=== PATIENT | female | born 1990 | race Caucasian/White ===

== ENCOUNTER 2022-11-27 20:02 | Emergency (ER) | payer OTHER, SELFPAY ==
--- NOTE | ~2022-11-27 | CT_ITS ---
EXAMINATION: CT LOWER LEG WITH IV CONTRAST, RIGHT CT LOWER LEG WITH IV CONTRAST, LEFT CLINICAL INFORMATION: Traumatic injury. Question quadriceps tendon injury. Inability to ambulate. Hyperextension injury bilaterally. COMPARISON: Right and left knee radiographs done earlier the same day. TECHNIQUE: Contiguous axial CT images of the right and left lower leg were obtained following the IV administration of 85 mL Omnipaque 350 contrast. Sagittal and coronal reformats were provided and reviewed. This CT examination was performed using dose optimization techniques as appropriate, variously including the following: *Automated exposure control *Adjustment of mA and/or kV according to patient size (this includes techniques or standardized protocols for targeted exams where dose is matched to indication/reason for exam; i.e. extremities or head) *Use of iterative reconstruction technique. DOSE: 293 mGy-cm. FINDINGS: RIGHT LOWER LEG: No acute fracture or dislocation. No concerning lytic or blastic osseous lesion. No evidence of avascular necrosis. No joint space narrowing or marginal osteophytes. The visualized muscles and tendons are grossly intact. No measurable tear or tendon retraction. Evaluation limited on CT examination. Trace right knee joint effusion. Intra-articular ligaments grossly intact, however, evaluation significantly limited on CT examination. Menisci are not well evaluated. Normal soft tissue mass, fluid collection, or enhancement. The visualized vascular structures are grossly intact. LEFT LOWER LEG: No acute fracture or dislocation. No concerning lytic or blastic osseous lesion. No evidence of avascular necrosis. No joint space narrowing or marginal osteophytes. Postsurgical change within the distal femur and proximal tibia consistent with anterior cruciate ligament reconstruction. The intra-articular ligaments are grossly intact, evaluation is significantly limited on CT examination. Menisci are not well evaluated. No significant joint effusion. The visualized muscles and tendons are grossly intact, however, evaluation is limited on CT examination. No abnormal soft tissue mass or fluid collection. No enhancing lesion. The vascular structures are grossly unremarkable. CT/CT lower leg RT w IV con IMPRESSION: Right Lower Leg: No acute fracture or dislocation. Trace right knee joint effusion. Left Lower Leg: No acute osseous abnormality. Postsurgical change consistent with anterior cruciate ligament reconstruction. The intra-articular ligaments and tendons are grossly intact, however, evaluation is significantly limited on CT examination. Menisci are not well evaluated.
--- NOTE | ~2022-11-27 | XR_ITS ---
EXAMINATION: XR KNEE, RIGHT CLINICAL INFORMATION: Pain. COMPARISON: None available. TECHNIQUE: 3 views of the right knee. FINDINGS: There is some limitation as the AP image is obliqued. The bone mineralization is within normal limits. The joint spaces are maintained. There is no fracture or joint effusion. The soft tissues are unremarkable. XR/XR knee RT 3V IMPRESSION: The AP image is obliqued limiting evaluation. No evidence for acute osseous abnormality or joint effusion.
--- NOTE | ~2022-11-27 | XR_ITS ---
EXAMINATION: XR KNEE, LEFT CLINICAL INFORMATION: Pain. COMPARISON: None available. TECHNIQUE: Four views of the left knee. FINDINGS: The bone mineralization is within normal limits. There is evidence of prior anterior cruciate ligament repair. The joint spaces are maintained. There is no fracture. There is no evidence for significant joint effusion. XR/XR knee LT 3V IMPRESSION: No acute osseous abnormality.
[2022-11-27 20:31] VITALS: BP 110/77; BP 138/88; PULSE 111; PULSE 94; RESP 16; TEMP 36.6; O2SAT 98; O2SAT 99; BMI 29.2
--- NOTE | 2022-11-27 20:58 | ED.LOWEXIN ---
HPI - Extremity Injury (Lower) General Chief Complaint: Extremity Injury, Lower Stated Complaint: fell Time Seen by Provider: 11/27/22 20:39 Source: patient and family (Mother, Rosaline) Mode of arrival: ambulatory Limitations: no limitations History of Present Illness HPI Narrative: 32-year-old female who presents emergency department for evaluation of bilateral knee injury. The patient was pulling a root when the root gave way . The patient then hyperextended her knee, felt a snapping sensation in the right knee and then the left knee and then fell to the ground landing on her buttocks. She states that she had severe immediate pain in both knees which was 9/10 at its worst. She states that she had to stay sitting on the ground for 45 minute secondary to the severity the packing. She took some Tylenol 2 tablets with no relief for pain. The patient states she lives very close to the hospital and was brought to the emergency department by private vehicle. She states she has not been able to stand and walk secondary to the severity of the pain. She states she cannot bend her knee secondary to the severity of her pain. The patient had a left ACL tear which was repaired in 2006 otherwise she has no other significant knee problems. Related Data Home Medications Medication Instructions Recorded Confirmed bupropion HCl 150 mg 24 hr tablet, 300 mg PO DAILY 11/28/22 extended release candesartan 4 mg tablet 12 mg PO DAILY 11/28/22 escitalopram oxalate 5 mg tablet 5 mg PO DAILY 11/28/22 galcanezumab-gnlm 120 mg/mL 120 mg subcut QMONTH 11/28/22 subcutaneous pen injector (Emgality Pen) lorazepam 1 mg tablet 1 mg PO TID 11/28/22 norethindrone (contraceptive) 0.35 0.35 mg PO DAILY 11/28/22 mg tablet omeprazole 20 mg capsule,delayed 40 mg PO DAILY 11/28/22 release sumatriptan succinate 100 mg tablet 100 mg PO NEEDED Migraine 11/28/22 Allergies Allergy/AdvReac Type Severity Reaction Status Date / Time No Known Allergies Allergy Unverified 01/06/20 16:56 Review of Systems Review of Systems: Yes all other systems are reviewed and are negative PMFSH Social History Social History Alcohol intake: never Smoked in Last 30 Days: No Use of substances other than those prescribed or required for medical reasons: No Advance Directives: No Advance Directives Information Provided: No Patient : No Physical Exam Vital Signs: Vital Signs: Last Vital Signs Temp 97.7 F 11/28/22 07:05 Pulse 81 11/28/22 07:05 Resp 12 11/28/22 07:05 BP 121/87 11/28/22 07:05 Pulse Ox 98 11/28/22 07:05 O2 Del Method Room Air 11/28/22 07:05 BMI result Body Mass Index 29.2 Vital signs were normal. General: Awake, alert in no distress Head: Normocephalic, atraumatic Extremities: no obvious deformities, there may be a joint effusion in the right knee. Patient has significant pain with minimal movement of her knee which limit CT exam of her knee. She has my tenderness with palpation over the medial collateral ligaments bilaterally, her knees are in a slightly flexed position further flex or extend her knee secondary to pain. Skin: no rashes, no lesion, normal color and warmth Neuro: Awake, alert, oriented, normal speech Psych: Pleasant, cooperative Medications Administered Generic Name Dose Route Start Last Admin Trade Name Freq PRN Reason Stop Dose Admin Acetaminophen 975 mg 11/28/22 00:40 11/28/22 01:33 Acetaminophen 325 Mg Tablet PO 975 mg Q6H PRN Administration Pain, Moderate(Pain Scale 4-6) Morphine Sulfate 15 mg 11/28/22 00:40 11/28/22 01:33 Morphine Sulfate Immed Release 15 Mg Tablet PO 15 mg Q4H PRN Administration Pain, Severe (Pain Scale 7-10) Discontinued Medications Generic Name Dose Route Start Last Admin Trade Name Freq PRN Reason Stop Dose Admin Diphenhydramine HCl 50 mg 11/28/22 03:42 11/28/22 03:49 Diphenhydramine Hcl 50 Mg/Ml Vial IVPUSH 11/28/22 03:43 50 mg ONCE STA Administration Ketorolac Tromethamine 15 mg 11/27/22 20:57 11/27/22 21:27 Ketorolac Tromethamine 15 Mg/Ml Vial IVPUSH 11/27/22 20:58 15 mg ONCE STA Administration Metoclopramide HCl 10 mg 11/28/22 03:42 11/28/22 03:49 Metoclopramide Hcl 10 Mg/2 Ml Vial IVPUSH 11/28/22 03:43 10 mg ONCE STA Administration Morphine Sulfate 4 mg 11/27/22 20:57 11/27/22 21:27 Morphine Sulfate 4 Mg/Ml Cartridge IVPUSH 11/27/22 20:58 4 mg ONCE STA Administration Protocol Morphine Sulfate 4 mg 11/27/22 22:17 11/27/22 22:22 Morphine Sulfate 4 Mg/Ml Cartridge IVPUSH 11/27/22 22:18 4 mg ONCE STA Administration Protocol Morphine Sulfate 4 mg 11/27/22 23:45 11/27/22 23:59 Morphine Sulfate 4 Mg/Ml Cartridge IVPUSH 11/27/22 23:46 4 mg ONCE STA Administration Protocol Morphine Sulfate 15 mg 11/28/22 04:05 11/28/22 04:22 Morphine Sulfate Immed Release 15 Mg Tablet PO 11/28/22 04:06 15 mg ONCE STA Administration Omeprazole 20 mg 11/28/22 00:37 11/28/22 01:33 Omeprazole [address] FLORES 11/28/22 00:38 20 mg ONCE ONE Administration Ondansetron HCl 4 mg 11/28/22 00:37 11/28/22 01:32 Ondansetron Hcl 4 Mg/2 Ml Vial IVPUSH 11/28/22 00:38 4 mg ONCE ONE Administration Medical Decision Making Medical Decision Making MDM Narrative: 32-year-old female with a history of left ACL tear status post repair 2006 who presents emergency department for evaluation of bilateral knee pain. The patient was bending and trying to pull a root out of the ground when the root gave way causing her to hyperextend both knee. She felt a snap in the right knee than the left knee and fell to the ground landing on her buttocks. Since the onset of the injury she has not been able to flex or extend her knees and she has not been able to walk. H There may be a small joint effusion of the right knee otherwise exam is very limited secondary to her pain. I ordered ice to both knees, Toradol 15 mg IV and morphine 4 mg IV. My plan will be to try to get her pain to a tolerable level to see if I can examine her and to see if she is able to stand and walk. If I am unable to control her pain then she will need PT and case management evaluation as well as orthopedic consult. 0047: Start physician observation The patient required a total of 3 doses of morphine 4 mg IV with improvement of her pain. She was able to straighten her knees and we did place her in bilateral knee immobilizers. The patient is unable to stand and walk with either crutches or a walker secondary to severe bilateral knee pain and her right knee gives out on her. The patient will be kept in the emergency department on physician observation for physical therapy, Case Management an orthopedic consult. I will order the patient's outpatient medication regimen. Patient will be treated with ibuprofen 400 mg 3 times a day, Tylenol 975 mg every 6 hours as needed for pain and for pain not relieved by these medications morphine 15 mg every 4 hours as needed for pain. I ordered case management and physical therapy consult as well as an orthopedic consult. 0842: Physician observation continued: Patient is still having significant pain in her knees right greater than left and has not been able to stand and walk since the injury. At the end of my shift, patient's care was turned over to my colleague, Dr. Sonya Polo Differential Diagnosis Differential Diagnoses: The differential diagnosis associated with the presentation includes Differential diagnosis includes but is not limited to acute fracture, acute tendon injury, acute ligament injury (ACL, PCL, medial collateral ligament, lateral collateral ligament). Admission/Observation Consideration of admission/observation: Escalation of care including admission/observation considered Consult Healthcare Provider Management of the patient was discussed with: Truck Rental Service Attendant (Orthopedic) Lab Data MDM Lab Attestation statement: I reviewed the patient's lab results. My independent interpretation of the patient's laboratory evaluation is as follows: Normal CBC. Normal coags. Normal CMP. Negative quantitative beta-hCG test. 11/27/22 21:22 11/27/22 21:22 Labs: Lab Results 11/27/22 11/27/22 11/27/22 Range/Units 21:22 21:22 21:22 WBC 9.0 (4.8-10.8) X10*3/uL RBC 4.61 (4.20-5.50) X10*6/uL Hgb 13.9 (12.0-16.0) g/dl Hct 41.5 (37.0-47.0) % MCV 90.0 (80.0-98.0) fL MCH 30.2 (27.0-33.0) pg MCHC 33.5 (31.0-35.0) g/dl RDW 13.6 (11.0-16.0) % Plt Count 304 (160-400) X10*3/uL MPV 9.9 (9.4-12.3) fL Immature Gran % (Auto) 0.3 (0.0-0.4) % Neut % (Auto) 75.0 H (45-73) % Lymph % (Auto) 16.4 L (20-40) % [place] % (Auto) 6.9 (2-11) % Eos % (Auto) 0.8 (0-4) % Baso % (Auto) 0.6 (0-2) % Lymph # (Auto) 1.5 (1.2-4.9) X10*3/uL [place] # (Auto) 0.6 (0.1-1.2) X10*3/uL Eos # (Auto) 0.1 (0.0-0.4) X10*3/uL Baso # (Auto) 0.1 (0.0-0.2) X10*3/uL Abs Immat Gran (auto) 0.03 (0.00-0.03) X10*3/uL Absolute Neuts (auto) 6.8 (2.0-8.3) x10*3/uL Absolute Nucleated RBC 0.000 (0.0-0.012) X10*3/uL Nucleated RBC % (auto) 0.0 (0.0-0.2) /100WBC PT 12.4 (11.1-13.3) SEC INR 1.0 (0.9-1.1) APTT 28.4 (26.0-36.4) SEC Sodium 140 (135-145) mmol/L Potassium 4.0 (3.3-5.1) mmol/L Chloride 108 (96-108) mmol/L Carbon Dioxide 21 L (22-29) mmol/L Anion Gap 15 (12-20) BUN 10 (9-16) mg/dL Creatinine 0.98 (0.5-1.4) mg/dL Estim Creat Clear Calc 82.0 Estimated GFR > 60 Random Glucose 82 (60-115) mg/dL Calcium 9.8 (8.4-10.2) mg/dL Total Bilirubin 0.4 (0.0-1.0) mg/dL AST 26 (5-31) U/L ALT 31 (0-31) U/L Alkaline Phosphatase 91 (39-117) U/L Total Protein 7.4 (6.5-8.0) g/dL Albumin 4.4 (3.5-5.0) g/dL Beta HCG, Quant < 2 mIU/mL Independent Historian Clinical information obtained from an independent historian. History obtained from or confirmed by: Parent Discharge Plan Discharge Clinical Impression: Injury of knee, right, Injury of knee, left, Unable to ambulate Patient Disposition: Still a Patient Prescriptions: No Action candesartan 4 mg tablet 12 mg PO DAILY sumatriptan succinate 100 mg tablet 100 mg PO NEEDED omeprazole 20 mg capsule,delayed release(DR/EC) 40 mg PO DAILY bupropion HCl 150 mg tablet extended release 24 hr 300 mg PO DAILY lorazepam 1 mg tablet 1 mg PO TID norethindrone (contraceptive) 0.35 mg tablet 0.35 mg PO DAILY escitalopram oxalate 5 mg tablet 5 mg PO DAILY Emgality Pen 120 mg/mL pen injector 120 mg subcut QMONTH
[2022-11-27] MEDS: Ketorolac Tromethamine 15 MG/ML VIAL IVPUSH (21:27)
[2022-11-27] MEDS: Morphine Sulfate 4 MG/ML CARTRIDGE IVPUSH ×3 (21:27→23:59)
[2022-11-27 21:28] LABS: Basophils Absolute Auto 0.1 X10*3/uL (0.0-0.2); Basophils Percent Auto 0.6 % (0-2); Eosinophils Absolute Auto 0.1 X10*3/uL (0.0-0.4); Eosinophils Percent Auto 0.8 % (0-4); Hematocrit 41.5 % (37.0-47.0); Hemoglobin 13.9 g/dl (12.0-16.0); Imm Gran Abs Auto 0.03 X10*3/uL (0.00-0.03); Imm Gran Pct Auto 0.3 % (0.0-0.4); Lymphocytes Absolute Auto 1.5 X10*3/uL (1.2-4.9); Lymphocytes Percent Auto 16.4 % (20-40); MANUAL DIFF FLAG NO; Mean Corpuscular HGB Conc 33.5 g/dl (31.0-35.0); Mean Corpuscular Hemoglobin 30.2 pg (27.0-33.0); Mean Platelet Volume 9.9 fL (9.4-12.3); Monocytes Absolute Auto 0.6 X10*3/uL (0.1-1.2); Monocytes Percent Auto 6.9 % (2-11); Neutrophils Absolute Auto 6.8 x10*3/uL (2.0-8.3); Platelet Count 304 X10*3/uL (160-400); Red Blood Count 4.61 X10*6/uL (4.20-5.50); Red Cell Distribution Width 13.6 % (11.0-16.0)
[2022-11-27 21:50] LABS: Alanine Aminotransferase 31 U/L (0-31); Albumin Level 4.4 g/dL (3.5-5.0); Alkaline Phosphatase 91 U/L (39-117); Anion Gap 15 (12-20); Aspartate Amino Transferase 26 U/L (5-31); Bilirubin Total 0.4 mg/dL (0.0-1.0); Blood Urea Nitrogen 10 mg/dL (9-16); Calcium 9.8 mg/dL (8.4-10.2); Carbon Dioxide 21 mmol/L (22-29); Chloride 108 mmol/L (96-108); Estimated Glomerular Filt Rate > 60; Glucose Random 82 mg/dL (60-115); Sodium 140 mmol/L (135-145); Total Protein 7.4 g/dL (6.5-8.0)
[2022-11-27 21:53] LABS: Prothrombin Time 12.4 SEC (11.1-13.3)
[2022-11-27 21:54] LABS: HCG Quantitative < 2 mIU/mL
[2022-11-27 21:56] LABS: Partial Thromboplastin Time 28.4 SEC (26.0-36.4)
[2022-11-27 22:22] VITALS: BP 118/86; PULSE 69; RESP 16; O2SAT 100
[2022-11-27 22:56] VITALS: BP 118/90; PULSE 81; RESP 17; TEMP 36.4; O2SAT 98
--- NOTE | 2022-11-28 00:05 | PC.NURSE ---
Patient attempted to ambulate with knee brace and walker. Patient still unable to walk at this time.
[2022-11-28 00:45] VITALS: BP 140/92; PULSE 82; RESP 16; TEMP 37; O2SAT 99
[2022-11-28] MEDS: ondansetron HCL 4 MG/2 ML VIAL IVPUSH (01:32)
[2022-11-28] MEDS: Omeprazole 20 MG CAPSULE.DR PO (01:33)
[2022-11-28] MEDS: Acetaminophen 325 MG TABLET 975 MG PO ×2 (01:33→13:45)
[2022-11-28] MEDS: Morphine Sulfate Immed Release 15 MG TABLET PO ×4 (01:33→13:45)
--- NOTE | 2022-11-28 03:00 | PC.NURSE ---
pt transferred to Main ED
[2022-11-28] MEDS: Metoclopramide HCl 10 MG/2 ML VIAL IVPUSH (03:49)
[2022-11-28] MEDS: diphenhydrAMINE HCL 50 MG/ML VIAL IVPUSH (03:49)
--- NOTE | 2022-11-28 03:56 | PC.NURSE ---
pt c/o nausea, medicated with reglan and benadryl ivp, also c/o 10/28 right le pain
[2022-11-28 04:04] VITALS: BP 124/82; PULSE 68; RESP 18; TEMP 36.1
[2022-11-28 07:05] VITALS: BP 121/87; PULSE 81; RESP 12; TEMP 36.5; O2SAT 98
--- NOTE | 2022-11-28 08:41 | PHA.MEDREC ---
Pharmacy Consult ? Medication Reconciliation Pharmacy has completed the medication reconciliation. Spoke to patient to confirm meds. Per patient, they take dexmethylphenidate 20mg BID, however they request to not take the medication here.
[2022-11-28] MEDS: Ibuprofen 400 MG TABLET PO (08:57)
[2022-11-28] MEDS: buPROPion HCl XL 300 MG TAB.ER.24H PO (08:57)
[2022-11-28] MEDS: Omeprazole 40 MG CAPSULE.DR PO (08:57)
[2022-11-28] MEDS: Valsartan 80 MG TABLET PO (08:57)
[2022-11-28] MEDS: Ondansetron ODT 4 MG TAB.RAPDIS TRANSLINGU (09:05)
[2022-11-28 09:06] VITALS: BP 123/83; PULSE 76; RESP 16; O2SAT 97
--- NOTE | 2022-11-28 09:19 | P.CONOP_ITS ---
History of Present Illness [facility] Consult date: 11/28/22 Chief complaint: fell Narrative: Ms. Bardales is a 32yo female with past history of left knee aCL reconstruction with complaints of bilateral knee pain after sustaining a fall on 11/27/22. She reports that she was pulling a large weed from her garden when she fell backwards. She hear two audible snaps and experiences excruciating pain inhibiting her from ambulating. She presented to the ED where x-rays were obtained and negative for any acute fracture or dislocation. Orthopedis was consulted for further evaluation and treatment. Review of Systems Review of Systems: Yes all other systems are reviewed and are negative PMFSH Social History Social History Alcohol intake: never Smoked in Last 30 Days: No Use of substances other than those prescribed or required for medical reasons: No Advance Directives: No Advance Directives Information Provided: No Patient : No Meds Allergies Allergy/AdvReac Type Severity Reaction Status Date / Time No Known Allergies Allergy Unverified 01/06/20 16:56 Active Medications: Current Medications Acetaminophen (Acetaminophen 325 Mg Tablet) 975 mg PO Q6H PRN PRN Reason: Pain, Moderate(Pain Scale 4-6) Last Admin: 11/28/22 01:33 Dose: 975 mg Bupropion HCl (Bupropion Hcl Xl 300 Mg Tab.Er.24h) 300 mg PO DAILY [facility] Last Admin: 11/28/22 08:57 Dose: 300 mg Ibuprofen (Ibuprofen 400 Mg Tablet) 400 mg PO TID [facility] Last Admin: 11/28/22 08:57 Dose: 400 mg Morphine Sulfate (Morphine Sulfate Immed Release 15 Mg Tablet) 15 mg PO Q4H PRN PRN Reason: Pain, Severe (Pain Scale 7-10) Last Admin: 11/28/22 01:33 Dose: 15 mg Omeprazole (Omeprazole 40 Mg Capsule.Dr) 40 mg PO DAILY [facility] Last Admin: 11/28/22 08:57 Dose: 40 mg Ondansetron HCl (Ondansetron Odt 4 Mg Tab.Rapdis) 4 mg TRANSLINGU Q8H PRN PRN Reason: Nausea and Vomiting Last Admin: 11/28/22 09:05 Dose: 4 mg Pharmacy Consult (Consult Rx Perform Med Rec) 1 each MISCELLANE ONCE PRN PRN Reason: Consult order Sumatriptan Succinate (Sumatriptan Succinate 100 Mg Tablet) 100 mg PO DAILY MRX1 PRN PRN Reason: Headache Valsartan (Valsartan 80 Mg Tablet) 80 mg PO DAILY [facility] Last Admin: 11/28/22 08:57 Dose: 80 mg Home Medications Medication Instructions Recorded Confirmed Last Taken Type bupropion HCl 150 mg 24 hr tablet, 300 mg PO DAILY 11/28/22 11/28/22 11/27/22 Hi story extended release candesartan 4 mg tablet 12 mg PO DAILY 11/28/22 11/28/22 11/27/22 History dexmethylphenidate 10 mg tablet 20 mg PO BID@0900,1400 11/28/22 11/28/22 11/27/22 History escitalopram oxalate 5 mg tablet 5 mg PO DAILY 11/28/22 11/28/22 11/27/22 History galcanezumab-gnlm 120 mg/mL 120 mg subcut QMONTH 11/28/22 11/28/22 2 Weeks Ago History subcutaneous pen injector ~11/14/22 (Emgality Pen) lorazepam 1 mg tablet 1 mg PO TID PRN Anxiety 11/28/22 11/28/22 Unknown History norethindrone (contraceptive) 0.35 0.35 mg PO DAILY 11/28/22 11/28/22 11/27/22 History mg tablet omeprazole 20 mg capsule,delayed 40 mg PO DAILY@0630 11/28/22 11/28/22 11/27/22 History release sumatriptan succinate 100 mg tablet 100 mg PO Q1H PRN Migraine Headache 11/28/22 11/28/22 Unknown History Physical Exam Vital Signs: Vital Signs: Last Vital Signs Temp 97.7 F 11/28/22 07:05 Pulse 76 11/28/22 09:06 Resp 16 11/28/22 09:06 BP 123/83 11/28/22 09:06 Pulse Ox 97 11/28/22 09:06 O2 Del Method Room Air 11/28/22 09:06 BMI result Body Mass Index 29.2 Const: General: cooperative, healthy appearing and no acute distress Resp: Effort & Inspection: normal respiratory effort and able to speak in complete sentences Cardio: Rate: regular rate Peripheral pulses: Peripheral pulses 2+ through out GI: Palpation (GI): Soft to palpation Skin: Lesions: no lesions Rashes: no rashes Extrem: Other: Bilateral knees normal to inspection. No ecchymosis or erythema. Mild bilateral effusions. Tenderness to palpation to bilateral patella and quad tendons. Left knee lateral aspect tender to palpation. Able to engage quds for STL minimally. NVI. Results Labs 11/27/22 21:22 11/27/22 21:22 Labs: Abnormal lab results 11/27/22 11/27/22 Range/Units 21:22 21:22 Neut % (Auto) 75.0 H (45-73) % Lymph % (Auto) 16.4 L (20-40) % Carbon Dioxide 21 L (22-29) mmol/L H & H 11/27/22 Range/Units 21:22 Hgb 13.9 (12.0-16.0) g/dl Hct 41.5 (37.0-47.0) % Coagulation 11/27/22 Range/Units 21:22 INR 1.0 (0.9-1.1) All other labs normal. Assessment and Plan (1) Injury of knee, right: Qualifiers: Encounter type: initial encounter Qualified Code(s): S89.91XA - Unspecified injury of right lower leg, initial encounter Status: Acute Ct scan: CT/CT lower leg RT w IV con IMPRESSION: Right Lower Leg: No acute fracture or dislocation. ? Trace right knee joint effusion. Left Lower Leg: No acute osseous abnormality. ? Postsurgical change consistent with anterior cruciate ligament reconstruction. The intra-articular ligaments and tendons are grossly intact, however, evaluation is significantly limited on CT examination. Menisci are not well evaluated. Recommendation is to WBAT Crutches or walker May f/u outpatient for orthopedic followup (2) Injury of knee, left: Qualifiers: Encounter type: initial encounter Qualified Code(s): S89.92XA - Unspecified injury of left lower leg, initial encounter Status: Acute (3) Unable to ambulate: Status: Acute Time Spent With Patient Time: Total time managing care of this patient today ____ minutes. Procedures Date of Service Date of Service: 11/28/22
[2022-11-28] MEDS: iohexoL 350 MG/ML 100 ML INFUS..BTL IV (09:36)
--- NOTE | 2022-11-28 09:39 | PC.NURSE ---
assumed care of pt at 0700, pt resting quietly, reports 9/10 bilateral knee pain - unable to ambulate at this time. medicated per JUN, prn zofran and morphine given, pt pending CT scans.
--- NOTE | 2022-11-28 13:56 | PC.NURSE ---
pt medicated for 10/10 bilateral knee pain, PT at bedside conducting eval.
--- NOTE | 2022-11-28 14:19 | PC.NURSE ---
per jason, pt removed IV, requesting discharge paperwork.
[2022-11-28 14:34] VITALS: BP 132/95; PULSE 88; RESP 12; O2SAT 98
--- NOTE | 2022-11-28 14:59 | PC.NURSE ---
pt requesting again to speak with provider, provider notified. no discharge instructions are available for pt at this time.
--- NOTE | 2022-11-28 15:15 | MHC.CM.ED ---
Addendum entered by Fina Valera 11/28/22 16:05: T/W attempted to obtain follow up ortho appointment with [facility] at patient's request. [facility] does not accept patient's insurance. Attempted to obtain an appointment with [facility]. Office will call patient to arrange. Patient aware and verbalized understanding. Original Note: Received case management consult overnight. Patient came to the ER due to bilateral knee pain from a fall. Patient had ACL repair in the past. Patient now having bilateral knee pain and difficulty walking. Ronaldo Rich, evaluated patient. Ordered BLE, which was essentially negative. Ortho doesn't feel immobilizers are necessary at this time and recommends weight bearing as tolerated. Physical therapy eval completed. Short term rehab is recommended. Met with patient and mother, Rosaline, in regards to discharge planning. Patient lives alone, ambulates independently at baseline and had no services prior to coming to the hospital. Patient reports having ACL surgery with a surgeon at [facility]. That provider is now retired. PCP is at [facility] in [place], but patient doesn't remember provider's name. Patient received 4 Moderna vaccines. Patient declines short term rehab at this time. Patient's mother's will come stay with her to help her. Patient is declining VNA at this time. Patient is requesting to see Dr Delgado, prescriptions be sent to [facility] [address] in [place] and a Rx for a walker be provided. Dr Delgado aware. Refugio SMITH aware. Continue to monitor for d/c needs.
== END 2022-11-28 16:18 | disposition home or self-care (01) ==
PROVIDERS: Emergency Medicine Emergency Medical Services; Emergency Provider Student in an Organized Health Care Education/Training Program
DX: S89.91XA Unspecified injury of right lower leg, initial encounter (principal); R26.2 Difficulty in walking, not elsewhere classified; M25.562 Pain in left knee; M25.561 Pain in right knee; W01.0XXA Fall on same level from slipping, tripping and stumbling without subsequent striking against object, initial encounter; Y93.9 Activity, unspecified; Y92.9 Unspecified place or not applicable; Y99.9 Unspecified external cause status; Z79.899 Other long term (current) drug therapy
CPT/HCPCS: 36415; 73562; 73701; 80053; 84702; 85025; 85610; 85730; 96374; 96375; 96376; 97162; 99284; J1200; J1885; J2270; J2405; J2765; Q9967

== ENCOUNTER → 2022-11-27 20:47 | Outpatient (BNV) | payer OTHER, SELFPAY | PROVIDERS: Emergency Provider Student in an Organized Health Care Education/Training Program; Visit Provider Physician Assistant | DX: S89.91XA Unspecified injury of right lower leg, initial encounter (principal); S89.92XA Unspecified injury of left lower leg, initial encounter; R26.2 Difficulty in walking, not elsewhere classified; W19.XXXA Unspecified fall, initial encounter | CPT/HCPCS: 99283 ==

== ENCOUNTER 2022-12-05 11:07 | Outpatient (AMB) | payer OTHER, SELFPAY ==
--- NOTE | 2022-12-05 11:16 | A.OFFVIS_ITS ---
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 Patient has history of left knee aCL reconstruction with complaints of bilateral knee pain after sustaining a fall on 11/27/22.Patient states she was pulling a large weed from her garden when she fell backwards. She heard her knee snap and experiences excruciating pain. She presented to the ED where x-rays were taken. Patient referred to Orthopedic for further evaluation. Hx of left ACL repair in 2006. The patient states that she tore her left knee anterior cruciate ligament in 2006 while playing flag football. She states that her right knee feels very similar to the way her left knee fell after her injury in 2006. She states that her right knee will give out several times per day. She also reports similar symptoms in her left knee at this time. She states that her right knee symptoms are worse than are her left. Allergies No Known Allergies Allergy (Unverified 12/05/22 11:24) Medication List - Last Reconciled 12/06/22 by Navjot Brewster MD bupropion HCl 300 mg PO DAILY candesartan 12 mg PO DAILY dexmethylphenidate 20 mg PO BID@0900,1400 escitalopram oxalate 5 mg PO DAILY galcanezumab-gnlm (Emgality Pen) 120 mg subcut QMONTH lorazepam 1 mg PO TID PRN norethindrone (contraceptive) 0.35 mg PO DAILY omeprazole 40 mg PO DAILY@0630 oxycodone 5 mg PO BID PRN sumatriptan succinate 100 mg PO Q1H PRN walker As directed [facility] Social History (Updated 12/05/22 @ 11:25 by Jocelyn Padilla [facility]) Alcohol intake: never Current occupation: rt hand Physical Exam Const Other: Well-nourished well-developed very friendly female awake alert and oriented x3 in no acute distress Extrem Other: Bilateral lower extremity examination shows good capillary refill, no skin lesions noted, normal sensation light touch Bilateral knee examination shows moderate effusions, minimal crepitus with range of motion, positive Manolo's test, positive Gautam's test, tenderness along her medial joint line Results Reviewed Results Reviewed: X-rays of the patient's bilateral knee show minimal diffuse joint space na rrowing, no acute bony abnormalities Assessment & Plan Assessment & Plan (1) Disruption of anterior cruciate ligament of right knee: Code(s): S83.511A - Sprain of anterior cruciate ligament of right knee, initial encounter Plan Ms. Bardales presents with progressively worsening right knee pain and instability possibly due to an acute anterior cruciate ligament tear. Thus, I will send her for an MRI of her right knee for further evaluation. I will see her back once the MRI is completed to discuss the findings and treatment options. She will continue with activities as tolerated in the meantime. Feel free to call me at any time should questions regarding her orthopedic management arise. Thank you very much for asking me to see this very friendly patient. I spent 22 minutes in reviewing the patient's records and imaging studies, seeing the patient and documenting in the medical record. Orders: Orders MR knee RT wo con 12/05/22 S83.511A - Sprain of anterior cruciate ligament of right knee, initial encounter Coding Level of Care Code New Pt Level 2 (60182) Diagnoses Disruption of anterior cruciate ligament of right knee S83.511A
== END 2022-12-05 11:41 | disposition home or self-care (01) ==
PROVIDERS: Visit Provider Orthopaedic Surgery
DX: S83.511A Sprain of anterior cruciate ligament of right knee, initial encounter (principal)
CPT/HCPCS: 99202

== ENCOUNTER → 2022-12-05 11:07 | Outpatient (BNVA) | payer OTHER, SELFPAY | PROVIDERS: Visit Provider Orthopaedic Surgery ==